=== PATIENT | male | born 1975 | race African-American/Black ===

== ENCOUNTER 2018-12-28 04:54 | Emergency (ER) | payer MEDICAID ==
[~2018-12-28] VITALS: Ht 175.3 cm; Wt 70.3 kg
[2018-12-28 05:15] VITALS: BP 121/71
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
--- NOTE | 2018-12-28 05:35 | NUR ---
RADIOLOGY AT BEDSIDE FOR XRAY
[2018-12-28] MEDS ORDERED: BACI/NEOM/POLY B OINT PKT 1 UDPKT PACKET TP ONE (06:00)
[2018-12-28] MEDS ORDERED: TDAP [DIPH/PERTUSSIS/TET] 0.5 ML VIAL IM ONE ×2 (06:00→06:02)
[2018-12-28] MEDS ORDERED: AMOX/CLAVULANATE 875 MG TABLET PO ONE ×2 (06:00)
[2018-12-28] MEDS ORDERED: IBUPROFEN 600 MG TABLET PO ONE ×3 (06:00→06:02)
[2018-12-28] MEDS ORDERED: BACI/NEOM/POLY B OINT PKT 1 UDPKT PACKET ONE (06:01)
[2018-12-28] MEDS ORDERED: AMOX/CLAVULANATE 875 MG TABLET ONE (06:02)
--- NOTE | 2018-12-28 06:22 | NUR ---
Patient discharged to home in stable condition. Written and verbal after care instructions given. Patient verbalizes understanding of instruction.
== END 2018-12-28 06:23 | disposition home or self-care (01) ==
LOC: ER 04:56
DX: L03.113 Cellulitis of right upper limb (principal); J45.909 Unspecified asthma, uncomplicated; E11.9 Type 2 diabetes mellitus without complications
CPT/HCPCS: 73130; 90471; 90715; 99284; A4606

== ENCOUNTER 2019-01-31 19:10 | Emergency (ER) | payer MEDICAID ==
[~2019-01-31] VITALS: Ht 177.8 cm; Wt 68.0 kg
[2019-01-31 19:39] VITALS: BP 124/84
[2019-01-31] MEDS ORDERED: IBUPROFEN 600 MG TABLET PO ONE ×2 (19:54→20:00)
[2019-01-31] MEDS ORDERED: ACETAMINOPHEN ES 500 MG TABLET ONE (19:54)
[2019-01-31] MEDS ORDERED: ACETAMINOPHEN ES 500 MG TABLET PO ONE (20:00)
== END 2019-01-31 20:03 | disposition home or self-care (01) ==
LOC: ER 19:11
DX: L03.114 Cellulitis of left upper limb (principal); J45.909 Unspecified asthma, uncomplicated; E11.9 Type 2 diabetes mellitus without complications

== ENCOUNTER 2019-02-09 14:15 | Emergency (ER) | payer MEDICAID ==
[2019-02-09] MEDS ORDERED: LIDOCAINE 1%-EPI 1:100,000 20 ML VIAL ONE (15:18)
[2019-02-09] MEDS ORDERED: LIDOCAINE HCL/PF 1% 30 ML VIAL TP ONE (15:30)
--- NOTE | 2019-02-09 16:41 | NUR ---
Patient discharged to home in stable condition. Written and verbal after care instructions given. Patient verbalizes understanding of instruction.
== END 2019-02-09 16:38 | disposition home or self-care (01) ==
LOC: ER 14:15
DX: L02.212 Cutaneous abscess of back [any part, except buttock and flank] (principal); L03.312 Cellulitis of back [any part except buttock and flank]; J45.909 Unspecified asthma, uncomplicated; E11.9 Type 2 diabetes mellitus without complications
CPT/HCPCS: 10060; 99283; A6402; A6407 ×2; J3490 ×2

== ENCOUNTER 2021-04-11 18:08 | Emergency (ER) | payer MEDICAID, OTHER ==
[~2021-04-11] VITALS: Ht 177.8 cm; Wt 72.6 kg
[2021-04-11 18:31] VITALS: BP 125/70
[2021-04-11] MEDS ORDERED: DOXY100C2 PO (18:51)
[2021-04-11] MEDS ORDERED: [UNRECOGNIZED DRUG - CODE] TP (18:51)
--- NOTE | 2021-04-11 18:57 | NUR ---
Patient discharged to home in stable condition. Written and verbal after care instructions given. Patient verbalizes understanding of instruction.
== END 2021-04-11 18:58 | disposition home or self-care (01) ==
LOC: ER 18:16
DX: L70.0 Acne vulgaris (principal); J45.909 Unspecified asthma, uncomplicated; E11.9 Type 2 diabetes mellitus without complications

== ENCOUNTER 2021-09-15 09:42 | Emergency (ER) | payer OTHER ==
[~2021-09-15] VITALS: Ht 177.8 cm; Wt 70.3 kg
[~2021-09-15 09:42] MED LIST: DOXY100C2 PO; [UNRECOGNIZED DRUG - CODE] TP
--- NOTE | 2021-09-15 10:05 | NUR ---
[facility] [employer] C/O LOWER ABDOMINAL PAIN & NAUSEA SINCE THIS MORNING. AAOX4, BREATHING EVEN AND UNLABORED. PT ASSISTED TO ER BED 4M, BLANKETS GIVEN, LAYING COMFROTABLY ON BED. BED RAILS UP. POL[employer] OFFICERS AT BEDSIDE.
[2021-09-15] MEDS ORDERED: CLONIDINE HCL 0.1 MG TABLET ONE (10:19)
[2021-09-15] MEDS ORDERED: ONDANSETRON 4 MG TAB.RAPDIS ONE (10:20)
[2021-09-15] MEDS ORDERED: CLONIDINE HCL 0.1 MG TABLET PO ONE (10:30)
[2021-09-15] MEDS ORDERED: ONDANSETRON 4 MG TAB.RAPDIS SL ONE (10:30)
[2021-09-15] MEDS ORDERED: ONDA4TAB11 PO (10:32)
[2021-09-15] MEDS ORDERED: ACETAMINOPHEN ES 500 MG TABLET PO ONE (11:00)
[2021-09-15] MEDS ORDERED: ACETAMINOPHEN ES 500 MG TABLET ONE (11:03)
[2021-09-15 11:28] VITALS: BP 128/78
--- NOTE | 2021-09-15 11:28 | NUR ---
Patient discharged to home in stable condition. Written and verbal after care instructions given. Patient verbalizes understanding of instruction.
== END 2021-09-15 11:29 ==
LOC: ER 09:44
DX: Z02.89 Encounter for other administrative examinations (principal); F11.23 Opioid dependence with withdrawal; J45.909 Unspecified asthma, uncomplicated; E11.9 Type 2 diabetes mellitus without complications; F17.200 Nicotine dependence, unspecified, uncomplicated
CPT/HCPCS: 99284; Q0162